=== PATIENT | male | born 1970 | race Caucasian/White ===

== ENCOUNTER 2018-04-16 18:08 | Observation (INO) ==
[2018-04-16] MEDS ORDERED: ONDANSETRON 4 MG/2 ML VIAL IV STA (18:50)
[2018-04-16] MEDS ORDERED: MORPHINE 4 MG/1 ML VIAL IV STA (18:50)
[2018-04-16] MEDS ORDERED: NITROGLYCERIN 2% OINT 1 INCH/GM PACK TOP STA (18:50)
[2018-04-16 18:58] LABS: Basophils # 0.1 10*3/uL (0.0-0.2); Basophils % 0.6 % (0.0-0.8); Eosinophils # 0.3 10*3/uL (0.0-0.87); Eosinophils % 2.6 % (0.00-10.9); Hematocrit 47.2 VOL% (42.0-52.0); Hemoglobin 16.2 GM/DL (14.0-18.0); Immature Granulocytes % 0.3 %; Immature Granulocytes Absolute 0.03 #; Lymphocytes # 2.6 10*3/uL (1.4-4.0); Lymphocytes % 25.6 % (21.2-54.2); Mean Corpuscular HGB Conc 34.3 GM/DL (32-36); Mean Corpuscular Hemoglobin 31 PG (27-34); Mean Corpuscular Volume 91.1 FL (87-102); Mean Platelet Volume 9.8 FL (9.6-12.0); Monocytes # 0.6 10*3/uL (0.11-0.8); Monocytes % 6.3 % (1.7-12.7); Neutrophils # 6.5 10*3/uL (1.4-7.4); Neutrophils % 64.6 % (38.7-73.9); Platelet Count 238 T/CUMM (130-400); Red Blood Count 5.18 MC/CUMM (3.8-5.5); Red Cell Distribution Width 11.9 % (9.3-17.3); White Blood Count 10.1 T/CUMM (4-12)
[2018-04-16 19:09] LABS: INR 0.9; PT Patient Result 9.6 SECS
[2018-04-16 19:22] LABS: Alanine Aminotransferase 60 U/L (16-61); Alkaline Phosphatase 80 U/L (45-117); Aspartate Amino Transferase 35 U/L (0-37); Blood Urea Nitrogen 18 MG/DL (7-18); Calcium 8.9 MG/DL (8.5-10.1); Glucose 130 MG/DL (74-106); Osmolality,Calculated 284.3 MOS/KG (273-304); Potassium 3.7 MMOL/L (3.5-5.1); Sodium 141 MMOL/L (136-145); Total Protein 7.9 G/DL (6.4-8.3); Troponin I < 0.015 NG/ML (0.00-0.045)
[2018-04-16] MEDS: ASPIRIN 325 MG TABLET PO STA ×2 (19:35→19:47)
[2018-04-16] MEDS ORDERED: traMADol 50 MG TABLET PO PRN (21:06)
[2018-04-16] MEDS ORDERED: POTASSIUM CHLORIDE 20 MEQ TABLET PO PRN (21:06)
[2018-04-16] MEDS ORDERED: MORPHINE 4 MG/1 ML VIAL IV PRN (21:06)
[2018-04-16] MEDS ORDERED: ONDANSETRON 4 MG/2 ML VIAL IV PRN (21:06)
[2018-04-16] MEDS ORDERED: ENOXAPARIN 40 MG/0.4 ML SYRINGE SUBCUT SCH (22:00)
[2018-04-16 22:08] LABS: Barbiturates Screen,Urine Negative (Negative); Benzodiazepines Screen,Urine Negative (Negative); Cannabinoid Screen,Urine Negative (Negative); Opiate Screen,Urine Positive (Negative); Phencyclidine Screen,Urine Negative (Negative)
[2018-04-16] MEDS ORDERED: chlordiazePOXIDE 25 MG CAPSULE PO PRN (22:49)
[2018-04-17 01:27] LABS: Risk Ratio 2.8; VLDL CHOLESTEROL 32.6 MG/DL
[2018-04-17] MEDS: NITROGLYCERIN 2% OINT 1 INCH/GM PACK TOP SCH ×3 (01:32→16:01)
[2018-04-17] MEDS ORDERED: OMEGA 3 ACID ETHYL ESTERS 1 GM CAPSULE PO SCH (09:00)
[2018-04-17] MEDS ORDERED: PANTOPRAZOLE 40 MG TABLET PO SCH (09:00)
[2018-04-17] MEDS ORDERED: LORATADINE 10 MG TABLET PO SCH (09:00)
[2018-04-17] MEDS ORDERED: ASPIRIN EC 81 MG TABLET PO SCH (09:00)
[2018-04-17] MEDS ORDERED: MULTIVITAMIN (CENTRUM) TABLET PO SCH (09:00)
[2018-04-17] MEDS ORDERED: POTASSIUM CHLORIDE RIDER 10 MEQ in PREMIX 1 EACH IV PRN (10:17)
[2018-04-17] MEDS ORDERED: DIAZEPAM 5 MG TABLET PO ONE (10:17)
[2018-04-17] MEDS ORDERED: MAGNESIUM SULF RIDER 2 GM in PREMIX 1 EACH IV PRN (10:17)
[2018-04-17] MEDS ORDERED: diphenhydrAMINE CAP 25 MG CAPSULE PO ONE (10:17)
[2018-04-17] MEDS ORDERED: ASPIRIN 325 MG TABLET PO ONE (10:17)
[2018-04-17] MEDS ORDERED: SODIUM CHLORIDE 0.45% 1,000 ML IV SCH (10:30)
[2018-04-17] MEDS ORDERED: LIDOCAINE 1% 20 ML VIAL ONE (11:48)
[2018-04-17] MEDS ORDERED: NITROGLYCERIN DRIP 50 MG/250 ML BOTTLE IV ONE (11:49)
[2018-04-17] MEDS ORDERED: VERAPAMIL 5 MG/2 ML VIAL ONE (11:49)
[2018-04-17] MEDS ORDERED: fentaNYL 100 MCG/2 ML VIAL ONE (11:55)
[2018-04-17] MEDS ORDERED: MIDAZOLAM 2 MG/2 ML VIAL ONE (11:55)
[2018-04-17 16:21] VITALS: BP 120/83
== END 2018-04-17 18:39 | disposition home or self-care (01) ==
LOC: N.ED 18:08 → N.EDINP 18:08 → N.TELES 22:04
PROVIDERS: ADMIT Internal Medicine; ATTEND Internal Medicine